=== PATIENT | female | born 1990 | race Caucasian/White ===

== ENCOUNTER 2016-12-27 14:05 | Emergency (ER) | payer OTHER, SELFPAY ==
[2016-12-27 14:23] VITALS: BMI 18.3
[2016-12-27 14:54] LABS: RBC URINE 1 /hpf (0-3); URINE BACTERIA RARE (<OCC); URINE BILIRUBIN NEGATIVE (NEGATIVE); URINE BLOOD NEGATIVE (NEGATIVE); URINE COLOR Yellow (YELLOW); URINE GLUCOSE (UA) NORMAL (Normal); URINE KETONE NEGATIVE (NEGATIVE); URINE LEUKOCYTE ESTERASE 2+ Leu/uL (Negative); URINE PROTEIN NEGATIVE (NEGATIVE); URINE UROBILINOGEN NORMAL mg/dL (0.2-1.0); WBC URINE 7 /hpf (0-5)
[2016-12-27] MEDS ORDERED: Sodium Chloride 0.9% 1,000 ML IV ONE (15:20)
[2016-12-27] MEDS ORDERED: Sodium Chloride 0.9% 1,000 ML ONE (15:29)
--- NOTE | 2016-12-27 15:30 | C.PDOC ---
History Of Present Illness 26 year old female presents to the ED with complaints of suprapubic pain worsening since yesterday with associated nausea and vomiting. Patient is at approximately 4 weeks . She denies vaginal bleeding, vaginal discharge, dysuria, or back pain. Time Seen by Provider: 12/27/16 14:09 Chief Complaint (Nursing): Abdominal Pain History Per: Patient History/Exam Limitations: no limitations Onset/Duration Of Symptoms: Days (symptoms began yesterday), Worse Since ( earlier today ) Current Symptoms Are (Timing): Still Present Location Of Pain/Discomfort: Suprapubic Radiation Of Pain To:: None Quality Of Discomfort: "Pain" Associated Symptoms: Nausea, Vomiting. denies: Fever, Chills Recent travel outside of the [place]: No Abnormal Vaginal Bleeding: No Past Medical History Reviewed: Historical Data, Nursing Documentation, Vital Signs Vital Signs: Last Vital Signs Temp 98.2 F 12/27/16 18:32 Pulse 77 12/27/16 18:32 Resp 16 12/27/16 18:32 BP 94/60 L 12/27/16 18:32 Pulse Ox 100 12/27/16 18:32 - [facility] Procedures EPISIOTOMY (12/01/12) Family History: States: Unknown Family Hx - Social History Hx Alcohol Use: No Hx Substance Use: No - Immunization History Hx Tetanus Toxoid Vaccination: Yes Hx Influenza Vaccination: No Hx Pneumococcal Vaccination: No Review Of Systems Constitutional: Negative for: Fever, Chills Cardiovascular: Negative for: Chest Pain, Palpitations Respiratory: Negative for: Cough, Shortness of Breath Gastrointestinal: Positive for: Nausea, Vomiting, Abdominal Pain. Negative for : Diarrhea Genitourinary: Negative for: Dysuria, Hematuria Musculoskeletal: Negative for: Back Pain Physical Exam - Physical Exam Appears: Non-toxic, No Acute Distress Skin: Warm, Dry Head: Atraumatic Eye(s): bilateral: Normal Inspection, EOMI Oral Mucosa: Moist Neck: Supple Chest: Symmetrical, No Deformity Cardiovascular: Rhythm Regular Respiratory: Normal Breath Sounds, No Rhonchi, No Wheezing Gastrointestinal/Abdominal: Soft, Tenderness (mild suprapubic tenderness), No Distention, No Guarding, No Rebound Neurological/Psych: Oriented x3, Normal Speech, Normal Cognition ED Course And Treatment - Laboratory Results Result Diagrams: 12/27/16 15:37 12/27/16 15:37 Lab Interpretation: Abnormal (UA is (+) for UTI) O2 Sat by Pulse Oximetry: 99 (room air ) Pulse Ox Interpretation: Normal - CT Scan/US Transabdominal US Other Rad Studies (CT/US): Read By Radiologist, Radiology Report Reviewed CT/US Interpretation: Indication: preg, pelvic pain. Comparison: Pelvic ultrasound performed 12/27/16. Technique: Real-time transabdominal pelvic ultrasound was performed. In addition a transvaginal pelvic ultrasound was necessary to better depict pelvic anatomy. Findings: The uterus measures approximately 8.1 x 4.9 x 4.7 cm. Anteverted. Cervix length measures approximately 3.1 cm. Limited visualization of a yolk sac on transabdominal views. The gestational sac measures 1.3 cm and is compatible with a gestational age of 5 weeks 3 days. A pole is not visualized. The right ovary measures 4.6 x 3.3 x 3.8 cm and contains 2.1 x 2.1 x 2.3 cm complex cyst, likely corpus luteum. The left ovary measures 2.8 x 1.2 x 2.2 cm. Blood flow was demonstrated to both ovaries. Bilateral adnexal and pelvic free fluid evident. Impression: Limited visualization of a yolk sac on only transabdominal views. The gestational sac measures 1.3 cm and is compatible with a gestational age of 5 weeks 3 days. A pole is not visualized. Correlate clinically including beta HCG and RELIGIOUS ASSISTANT consultation. Follow-up as indicated. 2.3 cm ovarian complex cyst, likely corpus luteum. Bilateral adnexal and pelvic free fluid evident. Progress Note: Labs and US were ordered. Patient was given Zofran and IV fluids. Medical Decision Making Medical Decision Making: On re-exam, the patient reports improvement of symptoms. Lungs are CTA, heart is RRR. Abdomen is soft, non-tender and patient is tolerating PO well. Ambulatory in the ED with steady gait. Follow up with the OBGYN within 1-2 days. Return if worsened. Disposition - Disposition Referrals: [facility] [Outside] Disposition: HOME/ ROUTINE Disposition Time: 17:53 Condition: GOOD Additional Instructions: RETURN TO THE ED IN 2-3 DAYS WITHOUT FAIL FOR REPEAT ULTRASOUND AND BETA-HCG TESTING THERE IS STILL RISK FOR ECTOPIC OR MISCARRIAGE. Prescriptions: Acetaminophen [Tylenol] 325 mg PO Q6 PRN #30 tab PRN Reason: Pain, Moderate (4-7) Nitrofurantoin Macrocrystals [Macrobid] 1 cap PO BID #14 cap Instructions: (ED), Urinary Tract Infection in Women (ED) Forms: [employer] (Citizen Of [place]) - Clinical Impression Clinical Impression: UTI (urinary tract infection), Abdominal pain during - Scribe Statement The provider has reviewed the documentation as recorded by the Scribe Tara Gomez All medical record entries made by the Sbibestevan were at my direction and personally dictated by me. I have reviewed the chart and agree that the record accurately reflects my personal performance of the history, physical exam, medical decision making, and the department course for this patient. I have also personally directed, reviewed, and agree with the discharge instructions and disposition.
[2016-12-27 15:40] LABS: BASO # 0.1 K/uL (0.0-0.2); BASO % 0.5 % (0.0-2.0); EOS % 0.1 % (0.0-4.0); LYMPH # 1.7 K/uL (1.0-4.3); LYMPH % 16.4 % (20.0-40.0); MEAN CELL VOLUME 82.7 fL (81.0-99.0); MEAN CORPUSCULAR HGB CONC 32.7 g/dL (33.0-37.0); MONO # 0.7 K/uL (0.0-0.8); MONO % 6.7 % (0.0-10.0); RED CELL DISTRIBUTION WIDTH 12.9 % (11.5-14.5); WHITE BLOOD COUNT 10.2 K/uL (4.8-10.8)
[2016-12-27 15:48] LABS: CHLORIDE 104 mmol/L (98-107)
[2016-12-27 15:49] LABS: POTASSIUM 3.9 mmol/L (3.6-5.2); SODIUM 137 mmol/L (132-148)
[2016-12-27 15:51] LABS: AST/SGOT 15 U/L (14-36); BILIRUBIN,TOTAL 0.9 mg/dL (0.2-1.3); GFR AFRICAN-AMERICAN > 60
[2016-12-27 15:52] LABS: ALKALINE PHOSPHATASE 52 U/L (38-126); CARBON DIOXIDE 22 mmol/L (22-30)
[2016-12-27 15:53] LABS: ALB/GLOB RATIO 1.2 (1.0-2.1); ALT/SGPT 24 U/L (9-52); BLOOD UREA NITROGEN 8 mg/dL (7-17); CALCIUM 9.7 mg/dl (8.6-10.4); GLUCOSE,RANDOM 101 mg/dL (65-105)
--- NOTE | 2016-12-27 17:07 | US ---
Indication: preg, pelvic pain Comparison: Pelvic ultrasound performed 12/27/16 Technique: Real-time transabdominal pelvic ultrasound was performed. In addition a transvaginal pelvic ultrasound was necessary to better depict pelvic anatomy. Findings: The uterus measures approximately 8.1 x 4.9 x 4.7 cm. Anteverted. Cervix length measures approximately 3.1 cm. Limited visualization of a yolk sac on transabdominal views. The gestational sac measures 1.3 cm and is compatible with a gestational age of 5 weeks 3 days. A pole is not visualized. The right ovary measures 4.6 x 3.3 x 3.8 cm and contains 2.1 x 2.1 x 2.3 cm complex cyst, likely corpus luteum. The left ovary measures 2.8 x 1.2 x 2.2 cm. Blood flow was demonstrated to both ovaries. Bilateral adnexal and pelvic free fluid evident. Impression: Limited visualization of a yolk sac on only transabdominal views. The gestational sac measures 1.3 cm and is compatible with a gestational age of 5 weeks 3 days. A pole is not visualized. Correlate clinically including beta HCG and BPM DEVELOPER consultation. Follow-up as indicated. 2.3 cm ovarian complex cyst, likely corpus luteum. Bilateral adnexal and pelvic free fluid evident.
[2016-12-27 18:33] VITALS: BP 94/60; PULSE 77; RESP 16; TEMP 98.2
[2016-12-29 10:28] VITALS: O2SAT 99
== END 2016-12-27 18:42 | disposition home or self-care (01) ==
LOC: C.ER 14:05
DX: O23.41 Unspecified infection of urinary tract in pregnancy, first trimester (principal); Z3A.01 Less than 8 weeks gestation of pregnancy
CPT/HCPCS: 76805; 76817; 80053; 81001; 84702; 84703; 85025; 96361; 96374; 99285; J2405; J7040

== ENCOUNTER 2016-12-30 11:38 | Emergency (ER) | payer OTHER ==
[2016-12-30 11:39] VITALS: BMI 18.3
[2016-12-30] MEDS ORDERED: Sodium Chloride 0.9% 1,000 ML IV ONE (12:05)
--- NOTE | 2016-12-30 12:20 | C.PDOC ---
History Of Present Illness 26 yr old female presents to the ER for repeat BETA and ultrasound. Patient was seen in ER 3 days ago (12/27) with complaints of superpubic cramping and , had a ultrasound which showed a gestational sac measuring 4 weeks and 3 days but no pole, and Bhcg of 16,060 and was discharged home with antibiotics for UTI and instructions to return in 2 days for repeat bhcg. Patient reports that she has been taking her antibiotics and has no complaints today. Patient denies abdominal pain, diarrhea, dysuria, vaginal bleeding, vaginal discharge, back pain, weakness or numbness. Time Seen by Provider: 12/30/16 12:02 Chief Complaint (Nursing): Medical Clearance History Per: Patient History/Exam Limitations: no limitations Onset/Duration Of Symptoms: Days Past Medical History Reviewed: Historical Data, Nursing Documentation, Vital Signs Vital Signs: Last Vital Signs Temp 98.2 F 12/30/16 13:59 Pulse 60 12/30/16 13:59 Resp 16 12/30/16 13:59 BP 99/61 L 12/30/16 13:59 Pulse Ox 97 12/30/16 14:09 - [facility] Procedures EPISIOTOMY (12/01/12) Family History: States: No Known Family Hx - Social History Hx Alcohol Use: No Hx Substance Use: No - Immunization History Hx Tetanus Toxoid Vaccination: Yes Hx Influenza Vaccination: No Hx Pneumococcal Vaccination: No Review Of Systems Except As Marked, All Systems Reviewed And Found Negative. Constitutional: Negative for: Fever, Chills, Weight loss Eyes: Negative for: Pain Cardiovascular: Negative for: Chest Pain, Palpitations, Orthopnea, Edema, Light Headedness Respiratory: Negative for: Cough, Shortness of Breath, SOB with Excertion, Wheezing Gastrointestinal: Positive for: Nausea (Throughout in morning. ). Negative for: Vomiting, Abdominal Pain, Diarrhea, Constipation Genitourinary: Negative for: Dysuria, Hematuria, Vaginal Discharge, Vaginal Bleeding, Pelvic Pain Musculoskeletal: Negative for: Back Pain Skin: Negative for: Rash Neurological: Negative for: Weakness, Numbness Psych: Negative for: Anxiety Physical Exam - Physical Exam Appears: Well, Non-toxic, No Acute Distress Skin: Warm, Dry, No Rash Head: Atraumatic, Normacephalic Eye(s): bilateral: Normal Inspection, PERRL, EOMI Oral Mucosa: Moist Chest: Symmetrical Cardiovascular: Rhythm Regular, No Murmur Respiratory: Normal Breath Sounds, No Rales, No Rhonchi, No Wheezing Gastrointestinal/Abdominal: Normal Exam, Soft, No Tenderness, No Guarding, No Rebound Back: Normal Inspection, No CVA Tenderness Extremity: Normal ROM, No Swelling Neurological/Psych: Oriented x3, Normal Speech, Normal Motor Gait: Steady ED Course And Treatment O2 Sat by Pulse Oximetry: 97 (RA ) Pulse Ox Interpretation: Normal - CT Scan/US US - Transvaginal Other Rad Studies (CT/US): Read By Radiologist, Radiology Report Reviewed CT/US Interpretation: Indication: pain, , u/s 3 days ago no pole. Comparison: 1st trimester/ Ob transvaginal ultrasound performed 12/27/16. Technique: Real-time transabdominal pelvic ultrasound was performed. In addition a transvaginal pelvic ultrasound was necessary to better depict pelvic anatomy. Findings: The uterus measures approximately 8.1 x 5.1 x 5.1 cm. Retroverted. Cervix length measures approximately 2.6 cm. There is a single intrauterine fetus present. 3 mm yolk sac. The gestational sac measures 1.5 cm and is compatible with a gestational age of 5 weeks 5 days. The crown-rump length measures 0.4 cm and is compatible with a gestational age of 6 weeks 0 days. Small probable subchorionic hemorrhage measuring approximately 0.3 x 0.3 x 0.7 cm. There is heart motion which measured 146.3 BPM. The right ovary measures 4.8 x 3.2 x 3.9 cm and contains 1.9 x 1.3 x 1.5 cm cyst. The left ovary measures 2.6 x 1.2 x 2.0 cm and contains 1.4 x 1.1 x 1.1 cm cyst. Blood flow was demonstrated to both ovaries. New line. Small pelvic free fluid. Impression: Live single intrauterine with estimated gestational age 5 weeks 5 days by gestational age calculation and 6 weeks 0 days by crown-rump length calculation. heart rate 146.3 bpm. Small probable subchorionic hemorrhage measuring approximately 0.3 x 0.3 x 0.7 cm. Advise an anomaly screen at 16-18 weeks gestational age Medical Decision Making Medical Decision Making: PLAN: * US - Transvaginal * BETA * Sodium Chloride IV 1:39PM [facility] [place] is now 30,305. Repeat us shows IUP with FHR as above Disposition - Disposition Disposition: HOME/ ROUTINE Disposition Time: 13:39 Condition: FAIR Additional Instructions: Finish course of antibiotics for uti. Take vitamins. Follow-up with your OB within 1 week. Return to ED if condition worsens. Forms: [employer] ([employer]) - Clinical Impression Clinical Impression: Medical assessment, Normal IUP (intrauterine ) on ultrasound - Scribe Statement The provider has reviewed the documentation as recorded by the Cassi Sow Provider Attestation: All medical record entries made by the Sbibe were at my direction and personally dictated by me. I have reviewed the chart and agree that the record accurately reflects my personal performance of the history, physical exam, medical decision making, and the department course for this patient. I have also personally directed, reviewed, and agree with the discharge instructions and disposition.
[2016-12-30 12:22] VITALS: RESP 16
[2016-12-30 13:59] VITALS: BP 99/61; PULSE 60; TEMP 98.2
--- NOTE | 2016-12-30 14:04 | US ---
Indication: pain, , u/s 3 days ago no pole Comparison: 1st trimester/ Ob transvaginal ultrasound performed 12/27/16 Technique: Real-time transabdominal pelvic ultrasound was performed. In addition a transvaginal pelvic ultrasound was necessary to better depict pelvic anatomy. Findings: The uterus measures approximately 8.1 x 5.1 x 5.1 cm. Retroverted. Cervix length measures approximately 2.6 cm. There is a single intrauterine fetus present. 3 mm yolk sac. The gestational sac measures 1.5 cm and is compatible with a gestational age of 5 weeks 5 days. The crown-rump length measures 0.4 cm and is compatible with a gestational age of 6 weeks 0 days. Small probable subchorionic hemorrhage measuring approximately 0.3 x 0.3 x 0.7 cm. There is heart motion which measured 146.3 BPM. The right ovary measures 4.8 x 3.2 x 3.9 cm and contains 1.9 x 1.3 x 1.5 cm cyst. The left ovary measures 2.6 x 1.2 x 2.0 cm and contains 1.4 x 1.1 x 1.1 cm cyst. Blood flow was demonstrated to both ovaries. New line Small pelvic free fluid. Impression: Live single intrauterine with estimated gestational age 5 weeks 5 days by gestational age calculation and 6 weeks 0 days by crown-rump length calculation. heart rate 146.3 bpm. Small probable subchorionic hemorrhage measuring approximately 0.3 x 0.3 x 0.7 cm. Advise an anomaly screen at 16-18 weeks gestational age
[2016-12-30 14:10] VITALS: O2SAT 97
== END 2016-12-30 14:00 | disposition home or self-care (01) ==
LOC: C.ER 11:38
DX: Z36 Encounter for antenatal screening of mother (principal)

== ENCOUNTER 2017-08-08 20:45 | Emergency (ER) | payer SELFPAY ==
--- NOTE | 2017-08-08 23:04 | OBDCSUM ---
Datetime: 08/08/2017 23:02 Follow up at, Provider: Clinic Disch Instr Diet: Regular Discharge Instructions, Provider: Routine instructions given Discharge Time: 08/08/2017 23:39 Follow up in weeks, Provider: 1 week Discharge Comment, Provider: labor precautins given Discharge Diagnosis Prov Other: early labor
--- NOTE | 2017-08-08 23:05 | OBHP ---
Datetime: 08/08/2017 22:55 IP Adm Impression: Term, intrauterine IP Admit Plan: Discharge home Admit Comment, IP Provider: @ 37.2 wks GA c/o of vaginal bleeding which she describes brown mucous dicharge after sex yesterdya. pt dnies any bright red bleeding, ctx, pain, lof, discharge, itc hi, bowl or bladder cmpaitns na dreports normal movements VSS PE See Above A/P @ 37.2 wks GA not in acticve labor -NST/TOCO -dc home -labor precautins Pelvic Type - PN: Adequate Extremities - PN: Normal Abdomen - PN: Normal Back - PN: Normal Breast - PN: Normal Lungs - PN: Normal Heart - PN: Normal Thyroid - PN: Not Done Neurologic - PN: Not Done HEENT - PN: Normal General - PN: Normal Presentation-Admit: Vertex FHR - Baseline A Provider: 120 Membranes, Provider: Intact Contraction Comments Provider: irregular Comments, ACOG Physical Exam: US: posteror placenta , cephalics VE: No blood, no dichage /50/-3 vtx intact Gestation - Est Wks by US: 37.2 EGA AdmitDate IP: 37.2 Vital Signs Provider: Reviewed; Within Normal Limits IP Chief Complaint: Vaginal bleeding NICHD Variability Prov Fetus A: Moderate 6-25bpm NICHD Accel Fetus A IP Provider: 15X15 FHR Category Provider Fetus A: Category I NICHD Decel Fetus A IP Provider: None Dilatation, Provider: 2 Effacement, Provider: 50 Station, Provider: -3 Genitourinary Exam: Normal DTRs - PN: Normal
[2017-08-09 03:33] VITALS: BP 104/62; PULSE 70; RESP 18; TEMP 98.1; O2SAT 98
== END 2017-08-08 23:15 | disposition home or self-care (01) ==
LOC: C.EROB 20:45
DX: O46.93 Antepartum hemorrhage, unspecified, third trimester (principal); Z3A.37 37 weeks gestation of pregnancy

== ENCOUNTER 2017-08-28 21:35 | Inpatient (IN) | payer SELFPAY ==
--- NOTE | 2017-08-28 22:09 | OBADHP ---
Datetime: 08/28/2017 22:07 Admit Comment, IP Provider: at 40.1week came with c/o lof started at 4 pm, irrg ctxs, 07/20, no vb,+fm obhx 1 x pmh de med pnv all nkda psh de soch de ve /-2 a/p at 40weeks prom/labor admit to l_d npo/ivf labs pain man anticipate Pelvic Type - PN: Adequate Extremities - PN: Normal Abdomen - PN: Normal Back - PN: Normal Breast - PN: Normal Lungs - PN: Normal Heart - PN: Normal Thyroid - PN: Normal Neurologic - PN: Normal HEENT - PN: Normal General - PN: Normal FHR - Baseline A Provider: 130 Contraction Comments Provider: q1-4 IP Hx Assessment: The History has been Reviewed and is Current Vital Signs Provider: Reviewed; Within Normal Limits IP Chief Complaint: Suspected ruptured membranes NICHD Variability Prov Fetus A: Moderate 6-25bpm NICHD Accel Fetus A IP Provider: 15X15 FHR Category Provider Fetus A: Category I Dilatation, Provider: 4 Effacement, Provider: 70 Station, Provider: -2 Genitourinary Exam: Normal DTRs - PN: Normal EGA AdmitDate IP: 40.1 IP Adm Impression: Term, intrauterine ; Active labor IP Admit Plan: Admit to unit; Initiate labor protocol Datetime: 08/08/2017 22:55 Presentation-Admit: Vertex Membranes, Provider: Intact Comments, ACOG Physical Exam: US: posteror placenta , cephalics VE: No blood, no dichage 50/-3 vtx intact Gestation - Est Wks by US: 37.2 NICHD Decel Fetus A IP Provider: None
[2017-08-28 22:10] VITALS: BMI 28.3
[2017-08-28] MEDS ORDERED: Lactated Ringer's 1,000 ML IV SCH (22:15)
[2017-08-28 23:47] LABS: BASO % 0.3 % (0.0-2.0); EOS # 0.1 K/uL (0.0-0.7); EOS % 0.5 % (0.0-4.0); HEMOGLOBIN 10.3 g/dL (11.0-16.0); LYMPH # 2.9 K/uL (1.0-4.3); LYMPH % 25.2 % (20.0-40.0); MEAN CORPUSCULAR HEMOGLOBIN 26.7 pg (27.0-31.0); MEAN CORPUSCULAR HGB CONC 32.8 g/dL (33.0-37.0); MEAN PLATELET VOLUME 9.6 fL (7.2-11.7); MONO # 0.8 K/uL (0.0-0.8); MONO % 7.2 % (0.0-10.0); NEUT # 7.8 K/uL (1.8-7.0); NEUT % 66.8 % (50.0-75.0); NRBC % 0.1 % (0.0-2.0); RBC 3.85 Mil/uL (3.80-5.20); RED CELL DISTRIBUTION WIDTH 18.1 % (11.5-14.5); WHITE BLOOD COUNT 11.7 K/uL (4.8-10.8)
[2017-08-28 23:50] LABS: MEAN CELL VOLUME 81.1 fL (81.0-99.0)
[2017-08-28 23:52] LABS: SQUAMOUS EPITHIAL 77 /hpf (0-5); URINE BACTERIA FEW (<OCC); URINE BILIRUBIN NEGATIVE (NEGATIVE); URINE BLOOD 3+ (NEGATIVE); URINE CLARITY Turbid (Clear); URINE GLUCOSE (UA) NORMAL (Normal); URINE LEUKOCYTE ESTERASE 3+ Leu/uL (Negative); URINE PROTEIN 1+ mg/dL (NEGATIVE); URINE UROBILINOGEN NORMAL mg/dL (0.2-1.0)
[2017-08-28 23:54] LABS: ALBUMIN 3.7 g/dL (3.5-5.0); ALT/SGPT 8 U/L (9-52); AST/SGOT 24 U/L (14-36); BLOOD UREA NITROGEN 11 mg/dL (7-17); CALCIUM 9.3 mg/dl (8.6-10.4); GFR AFRICAN-AMERICAN > 60; GFR NON-AFRICAN AMERICAN > 60
[2017-08-29 00:25] LABS: HEPATITIS B SURFACE AG Negative (NEGATIVE)
[2017-08-29] MEDS ORDERED: Bupivacaine HCl/FentaNYL Cit 100 ML EPI ONE (01:33)
[2017-08-29] MEDS ORDERED: Oxytocin 30 UNIT 30 UNITS/500 ML BAG IV ONE (05:59)
[2017-08-29] MEDS ORDERED: Oxytocin 30 UNIT 30 UNITS/500 ML BAG IV PRN (06:23)
--- NOTE | 2017-08-29 06:27 | OBPN ---
Datetime: 08/29/2017 06:25 IP Progress Impression: Normal progression of labor IP Procedures: Sterile Vag Exam IP Progress Plan: Continue present management Contraction Comments Provider: q1-4 FHR - Baseline A Provider: 130 IP Progress Note Comment: pt was examined at ed side ve / start ptocon anticipate Vital Signs Provider: Reviewed; Within Normal Limits NICHD Accel Fetus A IP Provider: 15X15 FHR Category Provider Fetus A: Category I NICHD Variability Prov Fetus A: Moderate 6-25bpm Dilatation, Provider: 4 Effacement, Provider: 70 Station, Provider: -2 Datetime: 08/08/2017 22:55 Membranes, Provider: Intact Gestation - Est Wks by US: 37.2 Presentation-Admit: Vertex NICHD Decel Fetus A IP Provider: None
[2017-08-29] MEDS ORDERED: Lidocaine 2% Inj (20ml) ONE (10:39)
[2017-08-29] MEDS ORDERED: Oxycodone/Acetaminophen 5/325 mg Tab PO PRN (11:06)
--- NOTE | 2017-08-29 11:22 | OBDS ---
DELIVERY PERSONNEL Delivery Doctor: Cole Blackmon MD [place]: Carol Maxwell RN Anesthesiologist: Echo Conley MD MATERNAL INFORMATION Delivery Anesthesia: Epidural Estimated Blood Loss (ml): 350 Placenta Cultured: No Maternal Complications: None Provider Comments: Uncomplicated vaginal delivery of live male ; BRANDY position, over intact per ienum, weight 7lb 3oz, 's 9/9. 's mouth and nose bulb-suctioned on perineum. Umbilcal cor d doubly clamped and cut; infant placed on mother's abdomen. Spontaneous delivery of placenta - grossly intact; 3 vessel cord. Uterine exploration performed - uterus contracted and firm. Inspection of cervix, vagina and perin eum - lacerations noted as decribed. Repair of same - as above. Infant and mother bonding, both in stable condition. EBL 350 mL LABOR SUMMARY EDC: 08/27/2017 00:00 No. Babies in Womb: 1 Attempted: No Labor Anesthesia: Epidural LABOR INFORMATION Reason for Induction: Not Applicable Onset of Labor: 08/28/2017 16:00 Complete Dilatation: 08/29/2017 08:41 Oxytocin: Augmentation Group B Beta Strep: Negative Antibiotics # of Doses: 0 Antibiotics Time of Last Dose: N/A Steroids Given: None Reason Steroids Not Administered: Not Applicable MEMBRANES Membranes Rupture Method: Spontaneous Rupture of Membranes: 08/28/2017 16:00 Length of Rupture (hrs): 18.48 Amniotic Fluid Color: Clear STAGES OF LABOR Stage 1 hrs: 16 Stage 1 min: 41 Stage 2 hrs: 1 Stage 2 min: 48 Stage 3 hrs: 0 Stage 3 min: 10 Total Time in Labor hrs: 18 Total Time in Labor min: 39 VAGINAL DELIVERY Episiotomy: None Laceration Extension: Second Degree Laceration Type: Perineal Other Laceration: 1st degree right labial Laceration Repair: Yes Laceration Repair Note: 2-0 chromic on 2nd degree laceration 3-0 chromic on first degree laceration. - routine repair. Hemostasis assured. Patient tolerated procedure well. Initial Vag Sponge Count: 10 Initial Vag Sharps Count: 0 Sponge Count Correct: Yes; Vaginal Sweep Performed Sharps Count Correct: Yes Count Comment: Correct BABY A INFORMATION Infant Delivery Date/Time: 08/29/2017 10:29 Method of Delivery: Vaginal Born in Route : No : N/A Forceps: N/A Vacuum Extraction: N/A Shoulder Dystocia : No SHOULDER DYSTOCIA BABY A Delivery Date/Time: 08/29/2017 10:29 PRESENTATION/POSITION BABY A Presentation: Cephalic Cephalic Presentation: Vertex Vertex Position: Left Occipital Anterior Breech Presentation: N/A PLACENTA INFORMATION BABY A Placenta Delivery Time : 08/29/2017 10:39 Placenta Method of Delivery: Spontaneous Placenta Status: Delivered SCORES BABY A Heart Rate 1 min: >100 bpm Resp Effort 1 min: Good Cry Reflex Irritability 1 min: Cough or Sneeze or Pulls Away Muscle Tone 1 min: Active Motion Color 1 min: Body [place], Extremities Blue Resuscitation Effort 1 min: Tactile Stimulation SCORE 1 MIN: 9 Heart Rate 5 min: >100 bpm Resp Effort 5 min: Good Cry Reflex Irritability 5 min: Cough or Sneeze or Pulls Away Muscle Tone 5 min: Active Motion Color 5 min: Body [place], Extremities Blue SCORE 5 MIN: 9 INFORMATION BABY A Gestational Age at Delivery: 40.2 Gestational Status: Post-term Infant Outcome : Liveborn Infant Condition : Stable Sex: Female IDENTIFICATION/MEDS BABY A ID Band Number: [id number] ID Band Location: Left Leg; Left Arm Sensor Applied: Yes Sensor Number: [id number] Sensor Location : Cord Clamp Vitamin K Given : Right Thigh Erythromycin Given: Given Both Eyes WEIGHT/LENGTH BABY A Infant Birthweight (gms): 3275 Weight (lb): 7 Weight (oz): 3 Infant Length Inches: 19.75 Length cms: 50.2 CORD INFORMATION BABY A No. Cord Vessels: 3 Nuchal Cord : N/A Nuchal Cord Other: N/A True Knot: n/a Cord Blood Taken: Yes Banking/Donate Info: n/a Suction: Mouth; Nose ASSESSMENT BABY A Infant Complications: None Physical Findings at Delivery: Within Normal Limits Respirations: Appears Normal Field Care Manager/ALS Called : No Infant Care By: Katina Sifuentes RN Transferred To: Remains with Mother
[2017-08-29] MEDS ORDERED: Benzocaine/Menthol 20%-0.5% Topical Spray (60 ml) TOP SCH (12:00)
[2017-08-30 08:52] LABS: BASO % 0.2 % (0.0-2.0); EOS % 0.4 % (0.0-4.0); HEMOGLOBIN 8.8 g/dL (11.0-16.0); LYMPH # 2.8 K/uL (1.0-4.3); LYMPH % 25.2 % (20.0-40.0); MEAN CELL VOLUME 81.2 fL (81.0-99.0); MEAN CORPUSCULAR HEMOGLOBIN 26.6 pg (27.0-31.0); MEAN CORPUSCULAR HGB CONC 32.7 g/dL (33.0-37.0); MEAN PLATELET VOLUME 9.3 fL (7.2-11.7); MONO # 0.6 K/uL (0.0-0.8); MONO % 5.1 % (0.0-10.0); NEUT # 7.7 K/uL (1.8-7.0); NEUT % 69.1 % (50.0-75.0); RBC 3.31 Mil/uL (3.80-5.20); RED CELL DISTRIBUTION WIDTH 18.8 % (11.5-14.5); WHITE BLOOD COUNT 11.1 K/uL (4.8-10.8)
[2017-08-30] MEDS: Multiple Vitamins Tab PO SCH (10:03)
--- NOTE | 2017-08-30 21:12 | OBPPN ---
Datetime: 08/30/2017 09:07 PP Pain Prov: Within normal limits PP Nausea Prov: Denies PP Flatus Prov: Yes PP Breasts Prov: Normal PP Heart Prov: Normal PP Lungs Prov: Normal PP Abdomen/Uterus Prov: Normal PP Lochia Prov: Normal PP Vulva/Perineum Prov: Normal PP CVA Tenderness Prov: Normal PP Extremities Prov: Normal PP Progress Prov: Normal PP Impression Prov: Normal progression PP Plan Prov: Continue present management PP Progress Note Prov: s: no c/o. pain well controlled o: [id number] i: s/p doing well p: current care d/c home on iron supplementation IP PP Procedures: None Vital Signs Provider PP: Within Normal Limits
--- NOTE | 2017-08-31 07:27 | OBDCSUM ---
Datetime: 08/31/2017 07:25 Discharged to, Provider: Home Follow up at, Provider: 6week Discharge Diagnosis, Provider: Term Delivered Follow up in weeks, Provider: clinic Discharge Comment, Provider: dc home no sex motrin prn f/u in 6week
--- NOTE | 2017-08-31 07:27 | OBPPN ---
Datetime: 08/31/2017 07:21 PP Pain Prov: Within normal limits PP Nausea Prov: Denies PP Flatus Prov: Yes PP Abdomen/Uterus Prov: Normal PP Lochia Prov: Normal PP Extremities Prov: Normal PP Comments Phys Exam Prov: fudus below umblicus ext no edemano calf te PP Impression Prov: Normal progression PP Plan Prov: Continue present management PP Progress Note Prov: pt was seen at bed side,pain undr control,no n/v, tolerating dir,voding,min l ochsa, flatus+ ppd#2 s/ dc home no sex motrin prn f/u in 6week Vital Signs Provider PP: Reviewed; Within Normal Limits
[2017-08-31 07:56] VITALS: PULSE 66; RESP 18; TEMP 97.8; O2SAT 98
[2017-08-31] MEDS: Multiple Vitamins Tab PO SCH (09:23)
[2017-08-31 16:19] VITALS: BP 90/54
== END 2017-08-31 12:00 | disposition home or self-care (01) | DRG 775 ==
LOC: C.EROB 21:35 → C.4D 22:10 → C.4M 08-29 12:32
PROVIDERS: ADMIT Obstetrics & Gynecology; ATTEND Obstetrics & Gynecology
PROC: 10E0XZZ Delivery of Products of Conception, External Approach (ICD-10-PCS; principal; 2017-08-29)
PROC: 0KQM0ZZ Repair Perineum Muscle, Open Approach (ICD-10-PCS; 2017-08-29)
PROC: 0HQ9XZZ Repair Perineum Skin, External Approach (ICD-10-PCS; 2017-08-29)
DX: O42.02 Full-term premature rupture of membranes, onset of labor within 24 hours of rupture (principal); O48.0 Post-term pregnancy; O70.0 First degree perineal laceration during delivery; O70.1 Second degree perineal laceration during delivery; Z3A.40 40 weeks gestation of pregnancy; Z37.0 Single live birth